=== PATIENT | male | born 1960 | race Caucasian/White ===

== ENCOUNTER → 2016-07-24 | Outpatient (CLI) | payer BC ==
[~2016-07-24] MED LIST: OXYC-57 PO
--- NOTE | 2016-07-24 14:59 | DIAGNOSTIC IMAGING REPORT ---
BONY ORBITS 3 VIEWS CLINICAL HISTORY: MRI clearance. FINDINGS: 3 views of the bony orbits are obtained. There is no radiodense/metallic foreign body seen in the region of the bony orbits. The bony orbits are grossly intact. The mastoid air cells and paranasal sinuses are clear as imaged. The visualized calvarium appears preserved. IMPRESSION: There is no radiopaque/metallic foreign body identified in the region of the bony orbits. Electronically signed by: Zhang Petit M.D. 07/24/2016 2:58 PM Dictated Date/Time: 07/24/2016 2:57 PM
--- NOTE | 2016-07-24 16:15 | DIAGNOSTIC IMAGING REPORT ---
LUMBAR SPINE MRI HISTORY: Back pain LUMBAR RADICULOPATHY TECHNIQUE: Multiplanar multisequence MRI of the lumbar spine was performed without the use of contrast. COMPARISON: None. FINDINGS: For the purpose of the report the L5-S1 disc space will be located on axial image 27 of 30. Moderate degenerative disc changes throughout the entire lumbar region. Unremarkable signal characteristics of the vertebral bodies. L1-L2: Mild broad-based bulging disc. L2-L3: Mild broad-based disc herniation. Mild multifactorial narrowing of the spinal canal. L3-L4: Mild broad-based disc herniation. Mild multifactorial narrowing of the spinal canal. Mild narrowing right neural foramina. L4-L5: Mild central disc herniation. Mild impact anterior thecal sac. Mild narrowing neuroforamina bilaterally. Hypertrophic changes posterior elements. L5-S1: Prominent right posterior disc herniation. Considerable deformity right anterior thecal sac with considerable narrowing right neural foramina. IMPRESSION: 1. Multilevel bulging disc/disc herniations with multifocal regions of narrowing of the spinal canal. 2. Right posterior disc herniation L5-S1. 3. Mild/moderate multifocal narrowing of the spinal canal from L2 through L4 4. Moderate degenerative disc changes throughout the entire lumbar region. Electronically signed by: Adalberto Perez M.D. 07/24/2016 4:14 PM Dictated Date/Time: 07/24/2016 4:11 PM
== END | disposition home or self-care (01) ==
LOC: C.RADBC 14:42
PROVIDERS: ATTEND Pain Medicine Interventional Pain Medicine
DX: Z13.89 Encounter for screening for other disorder (principal); M51.17 Intervertebral disc disorders with radiculopathy, lumbosacral region

== ENCOUNTER 2016-07-27 12:41 | Inpatient (IN) | payer BC ==
[~2016-07-27] VITALS: Ht 180.3 cm; Wt 110.5 kg
[2016-07-27] MEDS ORDERED: ONDANSETRON INJ 2 MG/ML 2 ML VIAL IV PRN (13:15)
[2016-07-27] MEDS ORDERED: LORAZEPAM INJ 1 MG in SYRINGE 0.5 ML IV PRN (13:15)
[2016-07-27] MEDS ORDERED: PROMETHAZINE HCL INJ 12.5 MG in SODIUM CHLORIDE 0.9% 50ML 50 ML IV PRN (13:15)
[2016-07-27] MEDS ORDERED: LORAZEPAM 1 MG TAB PO PRN (13:15)
[2016-07-27] MEDS ORDERED: NALOXONE HCL 0.4 MG/1 ML VIAL/CARP IV PRN (13:15)
--- NOTE | 2016-07-27 14:56 | HISTORY & PHYSICAL EXAMINATION ---
DATE OF ADMISSION: 07/27/2016 CHIEF COMPLAINT: Low back pain and right lower extremity pain. SUBJECTIVE EXAMINATION: Obinna is a 56-year-old patient who presented to our clinic with a 1-month history of increasing worsening low back pain and right lower extremity pain with associated numbness described in an S1 fashion. He was treated conservatively, which has included interventional management, who felt he was not a candidate for injections. He was referred to us for an evaluation, which demonstrated a large L5-S1 disk herniation in the right lateral recess. Currently, he reports back and right leg pain with associated numbness. Denies any left lower extremity symptoms or bowel or bladder dysfunction. He has never had any other treatment, but does have a history of chronic back pain that is managed conservatively with activity modification. Due to the level and severity of his pain, he was indicated for admission to the hospital for pain control with consideration of definitive management to include a right L5-S1 microdiskectomy. PAST MEDICAL HISTORY: Includes cervical stenosis. PAST SURGICAL HISTORY: Includes cervical ACDF and meniscectomy. ALLERGIES: No known allergies. CURRENT MEDICATIONS: Include Percocet. SOCIAL HISTORY: He is with 2 children. Positive alcohol and tobacco use. Has HVAC occupation. FAMILY HISTORY: None reported. REVIEW OF SYSTEMS: The patient denies any chills, fatigue, fever, cough, shortness of breath, recent respiratory infections, chest pain, heart murmuring, irregular heartbeat, syncope, nausea, vomiting, constipation, or diarrhea. PHYSICAL EXAMINATION: GENERAL APPEARANCE: A 56 years stated age, alert and oriented x3. CUTANEOUS LUMBAR: No dimplings, retractions, deformities, scarrings, or markings. RESPIRATORY: Clear to auscultation bilaterally. No wheezes, rhonchi, or rales. CARDIOVASCULAR: Regular rate and rhythm. No appreciated murmurs. LUMBAR: The patient has normal posturing. Normal gait. Pain with flexion, but tolerates extension. Positive straight leg raise on the right. No weakness noted throughout. No myotomal patterns bilaterally. Sensation is intact in all dermatomal patterns. Reflexes are equal and symmetric. No signs of clonus. DIAGNOSTIC STUDIES: Demonstrates a large L5-S1 disk herniation in the right lateral recess. He also has noted facet arthrosis, degenerative disks and stenosis throughout his lumbar spines at varying levels. IMPRESSION: 1. Right lumbar radiculopathy. 2. Right L5-S1 disk herniation. 3. Lumbar stenosis. PLAN OF CARE: After discussion with Obinna at this point, we have elected to admit him to [facility] for pain control. We discussed definitive options including a right L5-S1 microdiskectomy to include the risks, complications and outcomes. He conveyed an understanding and would like to proceed with this treatment plan. ARETHA
[2016-07-27 15:27] VITALS: BP 177/84; PULSE 97; TEMP 37; O2SAT 97; Ht 180.3 cm; Wt 110.5 kg
[2016-07-27 15:40] LABS: BASO % 0.3 %; BASO ABS # 0.02 K/uL (0-0.2); COMPLETE YES; EOS % 2.6 %; HEMATOCRIT 42.9 % (42-52); IG% 0.3 %; LYMPH % 29.5 %; LYMPH ABS # 1.91 K/uL (1.2-3.4); MEAN CELL VOLUME 89.2 fL (80-100); MEAN CORPUSCULAR HEMOGLOBIN 29.9 pg (25-34); MEAN CORPUSCULAR HGB CONC 33.6 g/dl (32-36); MEAN PLATELET VOLUME 9.9 fL (7.4-10.4); MONO % 9.1 %; NEUT % 58.2 %; PLATELET COUNT 182 K/uL (130-400); RED BLOOD COUNT 4.81 M/uL (4.7-6.1); WHITE BLOOD COUNT 6.47 K/uL (4.8-10.8)
[2016-07-27 16:04] LABS: BUN/CREATININE RATIO 15.3 (10-20); CALCIUM 8.9 mg/dl (8.5-10.1); CREATININE 1.2 mg/dl (0.60-1.40); POTASSIUM 3.7 mmol/L (3.5-5.1)
--- NOTE | 2016-07-27 16:12 | DIAGNOSTIC IMAGING REPORT ---
CHEST 2 VIEWS ROUTINE CLINICAL HISTORY: Preoperative chest COMPARISON STUDY: 05/09/2014 FINDINGS: The heart is borderline enlarged. There is no focal pulmonary consolidation. There is no failure. There are no pleural effusions. Postsurgical changes are present within the cervical spine.[ IMPRESSION: No active disease in the chest. Electronically signed by: Erasmo Webster M.D. 07/27/2016 4:11 PM Dictated Date/Time: 07/27/2016 4:10 PM
[2016-07-27 16:36] VITALS: BP 134/86; PULSE 71; TEMP 36.4; O2SAT 96
[2016-07-27] MEDS ORDERED: INFLUENZA ADMINISTRATION CHARGE ONE (16:45)
[2016-07-27] MEDS ORDERED: INFLUENZA VIRUS QUAD VACCINE 0.5 ML SYR IM. ONE (16:45)
[2016-07-27] MEDS: SODIUM CHLORIDE 0.9% 1000ML 1,000 ML IV SCH (18:20)
[2016-07-27] MEDS: HYDROmorphone HCL 0.5MG/ML 50 ML CASSETTE IV PRN ×2 (18:21→23:09)
[2016-07-27] MEDS: DEXAMETHASONE INJ 8 MG in SYRINGE 0 ML IV SCH (18:21)
[2016-07-27 20:31] LABS: URINE APPEARANCE CLEAR (CLEAR); URINE BILIRUBIN NEG (NEG); URINE COLOR YELLOW; URINE NITRITE NEG (NEG); URINE SPECIFIC GRAVITY 1.025 (1.000-1.030); UROBILINOGEN NEG (NEG)
[2016-07-27 20:32] LABS: MANUAL MICROSCOPIC REQUIRED? NO; REVIEW REQ? NO
[2016-07-27 22:58] VITALS: BP 118/79; PULSE 63; TEMP 36.3; O2SAT 92
[2016-07-28] MEDS: DEXAMETHASONE INJ 8 MG in SYRINGE 0 ML IV SCH ×2 (00:35→07:27)
[2016-07-28 05:17] VITALS: BP 131/79; PULSE 57; TEMP 36.4; O2SAT 93
[2016-07-28] MEDS ORDERED: CEFAZOLIN 2000 MG/60 ML D5W 60 ML IV SCH (06:00)
[2016-07-28 07:08] VITALS: BP 133/72; PULSE 64; TEMP 36.5; O2SAT 93
[2016-07-28] MEDS ORDERED: MIDAZOLAM HCL 1 MG/ML 2ML VIAL ONE ×2 (12:21→12:31)
[2016-07-28] MEDS ORDERED: FENTANYL CITRATE INJ 50 MCG/1 ML 2 ML VIAL ONE ×2 (12:21→12:31)
[2016-07-28] MEDS ORDERED: PROPOFOL IV EMULSION 10 MG/ML 20 ML VIAL IV ONE (12:36)
[2016-07-28] MEDS ORDERED: LIDOCAINE HCL 2% 2 ML VIAL (20MG/ML) ONE (12:36)
[2016-07-28] MEDS ORDERED: ONDANSETRON INJ 2 MG/ML 2 ML VIAL ONE (12:36)
[2016-07-28] MEDS ORDERED: ROCURONIUM BROMIDE 10 MG/ML 5 ML VIAL ONE (12:36)
[2016-07-28] MEDS ORDERED: GLYCOPYRROLATE INJ 0.2 MG/ML VIAL ONE (12:36)
[2016-07-28] MEDS ORDERED: NEOSTIGMINE METHYLSULFATE 5 MG/5 ML SYR ONE (12:36)
[2016-07-28] MEDS ORDERED: LARYING-O-JET KIT (LTA) EXT ONE ×2 (12:36)
[2016-07-28] MEDS ORDERED: DEXAMETHASONE SOD INJ 4 MG/ML VIAL ONE (12:36)
[2016-07-28] MEDS: SODIUM CHLORIDE 0.9% 1000ML 1,000 ML IV SCH (13:20)
[2016-07-28] MEDS ORDERED: BACITRACIN 50000 UNIT VIAL ONE (13:52)
[2016-07-28] MEDS ORDERED: THROMBIN 5000 UNITS KIT ONE (13:52)
[2016-07-28] MEDS ORDERED: BUPIVACAINE/EPINEPHRINE 0.5% MPF 1:200,000 30 ML VIAL ONE (13:52)
[2016-07-28 13:56] VITALS: BP 142/81; PULSE 66; TEMP 36.3; O2SAT 97
--- NOTE | 2016-07-28 14:42 | History & Physical Bridge Note ---
H&P Re-Evaluation Bridge Note: I have examined the patient, reviewed the History & Physical and in the interval since the performance of the History & Physical I have noted the following changes of clinical significance: No changes noted
[2016-07-28] MEDS ORDERED: OXYC-57 PO (14:46)
--- NOTE | 2016-07-28 14:47 | Discharge Instructions ---
Discharge Instructions Admission Reason for Admission: Lumbar Radiculopathy, Acute Discharge Discharge Diagnosis / Problem: Lumbar Disc Herniation Discharge Goals Goal(s): Decrease discomfort, Improve function, Increase independence Activity Recommendations Activity Limitations: as noted below Lifting Limitations: no more than 5 pounds Exercise/Sports Limitations: until after follow-up appointment May Resume Sexual Activity: after follow-up appointment Shower/Bathe: may shower/bathe in 3 days . Instructions / Follow-Up Instructions / Follow-Up ACTIVITY RECOMMENDATIONS: SELF CARE INSTRUCTIONS AFTER A LAMINECTOMY 1. No prolonged sitting (less than 30 minutes for the first 3 weeks after surgery). 2. No bending, lifting more than 5 pounds, or twisting (roll like a log when turning in bed). 3. You may shower 3 days after surgery if no drainage from wound. Thoroughly dry wound. Do not soak in the tub. 4. Please walk as much as you can for exercise. Gradually increase the distance that you walk as your endurance increases. 5. You may drive in 7-10 days if you are comfortable and no longer requiring pain medications. SPECIAL CARE INSTRUCTIONS: VERY IMPORTANT TO READ AND REVIEW A. Your surgical incision has been closed with a cosmetic suture under the skin that will dissolve in about 6 weeks. In 14 days, you can use a pair of clean scissors and cut the suture that is left outside of the skin at the ends of your incision. B. Complications are uncommon, but please contact us if you have any signs or symptoms of: 1. wound infection (fever higher than 102.5 degrees F, redness, separation of wound, drainage, or increasing pain from the incision) 2. blood clots in legs (pain, swelling, redness and warmth in legs) 3. urinary tract infection (fever higher than 102.5 degrees, burning upon urination or increased frequency of urination) 4. nerve problems (inability to walk on your toes or heels, numbness, loss of bowel or bladder control) 5. any other symptoms that concern you. C. Please call the office at if you have any concerns or questions about your operation or recovery. MANAGING PAIN AFTER SPINAL SURGERY 1. Narcotic medication is intended for short-term use and will be provided for surgical pain. Surgical pain usually lasts for a period of 4-6 weeks. Narcotic medication includes Percocet, Vicodin, Darvocet, Tylenol #3 or Lortab. 2. Longer-term pain is more appropriately treated with non-narcotic medication such as Tylenol ES. 3. Muscle spasm is not appropriately treated with narcotics. Muscle relaxers such as Soma, Flexeril or Skelaxin can be used along with Tylenol ES. 4. Remember that we all live with some "aches and pains". This is not unusual or uncommon after an injury or as we get older. 5. We will provide appropriate medication within the normal guidelines of their prescribed use. We will also be very cautious and aware of potential abuse and extended duration of patients' medication needs. 6. Please allow 2-3 days to process refills. Prescriptions will not be mailed but must be picked up at the office. FOLLOW UP VISIT: Keep your scheduled follow-up appointment. Any questions, please call the office at . Current Hospital Diet Patient's current hospital diet: Regular Diet Discharge Diet Recommended Diet: Regular Diet Pending Studies Studies pending at discharge: no Medical Emergencies . Who to Call and When: Medical Emergencies: If at any time you feel your situation is an emergency, please call 911 immediately. . Non-Emergent Contact Non-Emergency issues call your: Surgeon Call Non-Emergent contact if: temperature is above 101, your pain is not controlled, your pain is worsening, your pain is unusual for you, your pain is concerning you, wound has increased drainage, wound has increased redness, wound has increased pain, you have any medication questions . "Provider Documentation" section prepared by Baudilio Krause. VTE Core Measure Inpt VTE Proph given/why not?: Annie Grimaldo
[2016-07-28] MEDS ORDERED: HYDROmorphone INJ 2 MG/ML SYR/VIAL IV PRN (15:15)
[2016-07-28] MEDS ORDERED: PROMETHAZINE HCL INJ 12.5 MG in SODIUM CHLORIDE 0.9% 50ML 50 ML IV PRN (15:15)
[2016-07-28] MEDS ORDERED: ATROPINE SULFATE 0.1 MG/ML 5ML SYR IV PRN (15:15)
[2016-07-28] MEDS ORDERED: HYDROmorphone INJ 2 MG/ML SYR/VIAL ONE (15:15)
[2016-07-28] MEDS ORDERED: LABETALOL HCL IV 5 MG/ML 20ML IV PRN (15:15)
[2016-07-28] MEDS ORDERED: ONDANSETRON INJ 2 MG/ML 2 ML VIAL IV PRN ×2 (15:15→15:45)
--- NOTE | 2016-07-28 15:39 | [facility] Post Operative Brief Note ---
Immediate Operative Summary Operative Date Jul 28, 2016. Pre-Operative Diagnosis 1. Right lumbar radiculopathy. 2. Right L5-S1 disk herniation. 3. Lumbar stenosis. Post-Operative Diagnosis 1. Right lumbar radiculopathy. 2. Right L5-S1 disk herniation. 3. Lumbar stenosis. Procedure(s) Performed Right L5-S1 Microdiscectomy Surgeon Dr. Jung Hunt [employer] Process[employer] Surgeon(s) Baudilio Krause PA-C Estimated Blood Loss 40 Findings dict Specimens None per surgeon
[2016-07-28] MEDS ORDERED: OXYCODONE/ACETAMINOPHEN 5-325 TAB PO PRN ×2 (15:45)
[2016-07-28] MEDS ORDERED: FLOSEAL HEMOSTATIC MATRIX 5ML TOP ONE (15:53)
[2016-07-28] MEDS ORDERED: SODIUM CHLORIDE 0.9% 1000ML 1,000 ML IV SCH (16:00)
--- NOTE | 2016-07-28 16:03 | DIAGNOSTIC IMAGING REPORT ---
LUMBAR SPINE, INTRAOPERATIVE FLUOROSCOPY HISTORY: Microdiscectomy. FLUOROSCOPY TIME: 2 seconds. FINDINGS: Intraoperative fluoroscopy was provided for the lumbar spine. 2 fluoroscopic spot images were obtained. IMPRESSION: Fluoroscopy provided for a L5-S1 microdiscectomy. Electronically signed by: Adalberto Perez M.D. 07/28/2016 4:02 PM Dictated Date/Time: 07/28/2016 4:01 PM
[2016-07-28 16:55] VITALS: BP 148/77; PULSE 53; TEMP 36.3; O2SAT 99
--- NOTE | 2016-07-28 16:58 | Anesthesiology Progress Note ---
Anesthesia Post Op Note Date & Time Jul 28, 2016 at 16:58 Vital Signs Pain Intensity: 0 Vital Signs Past 12 Hours Date Time Temp Pulse Resp B/P Pulse Ox O2 Delivery O2 Flow Rate FiO2 07/28/16 16:29 36.5 53 16 128/89 98 Nasal Cannula 2 07/28/16 16:24 58 13 07/28/16 16:24 55 13 98 07/28/16 16:23 129/98 07/28/16 16:20 146/81 07/28/16 16:19 58 13 07/28/16 16:19 60 13 97 07/28/16 16:18 153/106 07/28/16 16:16 137/96 07/28/16 16:13 150/121 07/28/16 16:10 144/88 07/28/16 16:10 72 16 144/88 100 Mask 10 07/28/16 16:09 75 13 96 07/28/16 16:09 73 13 07/28/16 16:04 74 18 101/74 97 07/28/16 16:04 72 18 07/28/16 16:00 160/94 07/28/16 15:59 82 17 07/28/16 15:59 36.3 87 14 160/94 100 Mask 10 07/28/16 15:59 81 17 98 07/28/16 13:56 36.3 66 18 142/81 97 Room Air 07/28/16 07:20 Room Air 07/28/16 07:08 36.5 64 16 133/72 93 Room Air 07/28/16 05:17 36.4 57 16 131/79 93 Room Air Notes Mental Status: alert / awake / arousable, participated in evaluation Pt Amnestic to Procedure: Yes Nausea / Vomiting: adequately controlled Pain: adequately controlled Airway Patency, RR, SpO2: stable & adequate BP & HR: stable & adequate Hydration State: stable & adequate Anesthetic Complications: no major complications apparent
[2016-07-28 17:01] VITALS: O2SAT 99
[2016-07-28 17:39] VITALS: BP 148/77; PULSE 53; TEMP 36.3; O2SAT 99
--- NOTE | 2016-07-29 00:11 | OPERATIVE REPORT ---
DATE OF OPERATION: 07/28/2016 PREOPERATIVE DIAGNOSIS: Right L5-S1 herniated nucleus pulposus. POSTOPERATIVE DIAGNOSIS: Same. PROCEDURE: Right L5-S1 microdiscectomy. SURGEON: Dr. Hunt. WING COMMANDER: Baudilio Krause PA-C. Please note he participated in all portions of the procedure and was critical for performance of the procedure, participated in positioning, prepping, draping, retraction and wound closure. ANESTHESIA: General endotracheal anesthesia. COMPLICATIONS: None. ESTIMATED BLOOD LOSS: Minimal. PROCEDURE IN DETAIL: After identification of patient and operative level, he was brought to the OR where he underwent induction of general anesthesia. He was then positioned prone on Rock OR table. All bony prominences were well padded. Care was taken to avoid pressure on the periorbital area. Lumbosacral area was sterilely prepped and draped in the usual fashion. Antibiotics were administered, timeout was performed and level was confirmed. Skin incision was localized with lateral fluoroscopy and a spinal needle. I infiltrated the skin with Marcaine and then made skin incision from the spinous process of L5 and S1 and exposed the right L5-S1 interlaminar window. I placed blackjack supervisor retractor, confirmed level with fluoroscopy, marked the level and created a small laminotomy under the caudal edge of L5 with a german. I removed ligamentum flavum, identified the traversing nerve root which was displaced by a large disc herniation. I removed the loose disc fragments and explored the annular disruption and removed loose fragments. I then confirmed hemostasis, irrigated, applied FloSeal as necessary and then closed in layered fashion. All sponge and needle counts were correct at the end of the case. I attest to the content of the Intraoperative Record and any orders documented therein. Any exceptio ns are noted below.
--- NOTE | 2016-08-05 00:08 | DISCHARGE SUMMARY ---
PREOPERATIVE DIAGNOSIS: Right L5-S1 herniated disk. POSTOPERATIVE DIAGNOSIS: Same. PROCEDURE: Right L5-S1 microdiscectomy. SURGEON: Dr. Jung Hunt. GORE STITCHER: Baudilio Krause PA-C HISTORY OF PRESENT ILLNESS: Please refer to EMR. HOSPITAL COURSE: On 07/27/2016, Mr. Flynn was admitted to [facility] with the above diagnosis. He was placed on the orthopedic floor and placed on a SPECIAL EVENTS COORDINATOR for pain control with expectations of operative management. On July 28, he remained stable and was cleared medically for surgical procedure. On 07/28/2016, he was transported to preoperative holding where he was identified and the procedure was reviewed in detail. He was transported to the operating room, introduced with general endotracheal anesthesia. Sterile conditions were set and he successfully underwent a right L5-S1 microdiscectomy without complication or issue. He was awakened in stable and satisfactory condition and transported to postoperative recovery. Vital signs and pain were monitored and properly managed. There is no evidence of complications or issues to note. From postoperative care, he met the standards for discharge home and later was released from [facility]. There were no complications or issues to note. DISPOSITION: Home. DISPOSITION CONDITION: Stable. NOTED COMPLICATIONS OR ISSUES: Zero. DISCHARGE INSTRUCTIONS: Please refer to EMR.
== END 2016-07-28 18:40 | disposition home or self-care (01) | DRG 520 ==
LOC: C.MSN 15:05
PROVIDERS: ADMIT Orthopaedic Surgery Orthopaedic Surgery of the Spine; ATTEND Orthopaedic Surgery Orthopaedic Surgery of the Spine
PROC: 0ST40ZZ Resection of Lumbosacral Disc, Open Approach (ICD-10-PCS; principal; 2016-07-28 14:00)
DX: M51.17 Intervertebral disc disorders with radiculopathy, lumbosacral region (principal); M48.06 Spinal stenosis, lumbar region; E66.9 Obesity, unspecified; Z68.34 Body mass index [BMI] 34.0-34.9, adult; Z23 Encounter for immunization; Z72.0 Tobacco use; Z98.1 Arthrodesis status; Z79.891 Long term (current) use of opiate analgesic

== ENCOUNTER → 2016-08-13 | Outpatient (CLI) | payer BC ==
--- NOTE | 2016-08-13 12:26 | DIAGNOSTIC IMAGING REPORT ---
RIGHT LOWER EXTREMITY VENOUS DOPPLER HISTORY: Right leg pain. COMPARISON STUDY: None. FINDINGS: There is normal compressibility, flow, and augmentation within the right lower extremity deep venous system. IMPRESSION: No DVT within the right lower extremity Electronically signed by: Keven Hall M.D. 08/13/2016 12:25 PM Dictated Date/Time: 08/13/2016 12:25 PM
== END | disposition home or self-care (01) ==
LOC: C.ULTR 12:00
PROVIDERS: ATTEND Orthopaedic Surgery Orthopaedic Surgery of the Spine
DX: M79.661 Pain in right lower leg (principal)

== ENCOUNTER → 2017-08-17 | Outpatient (CLI) | payer BC ==
--- NOTE | 2017-08-18 06:16 | SPLIT NIGHT TECHNICIAN REPORT ---
[facility] Split Night Polysomnogram - Knurling Machine Operator Report Study date: 08/17/2017 Referring Physician: Dr. Vita Morrison M.D. Name: NAVJOT MORE Knurling Machine Operator: Saida Hodgson [facility] Date of : 1960 Height: 57 years, Height 5' 11" Sex: Male Weight: 250 lbs Age: 57 Neck Circum: 17 in BMI: Medications: 34.86 NONE REPORTED Patient History 57 yr-old male here for a baseline study. He has a history of witnessed apnea, snoring, frequent awakenings, and restless sleep. He stated that he will sleep for about three hours then toss and turn every fifteen minutes or so until he gets up. His [place] scale is 5. The test was started on room air. ETCO2 testing is included in this study. Room 1 Parameters Monitored NPSG: E1-M2, E2-M1, Fp1-M2, Fp2-M1, F3-M2, F4-M2, F4-M1, C3-M2, C4-M2, C4-M1, O1-M2, O2-M2, O2-M1, T3-M2, T4-M1, P3-M2, P4-M1, CHIN1, CHIN2, HR, EKG, Legs, PFLOW, SNOR, FLOW, CFLOW, Tidal Volume, THOR, ABDO, SpO2, PLTH, CPRESS, ETCO2 Wave, ETCO2, pH SLEEP SUMMARY DATA DIAGNOSTIC TREATMENT Lights Out: 9:47:42 PM 12:34:42 AM Lights On: 12:18:12 AM 5:27:42 AM Total Recording Time (TRT): 150.5 min. 293.0 min. Total Sleep Time (TST): 126.5 min. 226.5 min. NREM Time: 115.0 min. 138.0 min. REM Time: 11.5 min. 88.5 min. Sleep Period Time (SPT): 131.0 min. 271.5 min. Sleep Efficiency (SE): 84 % 77 % Sleep Latency: 19.5 min. 21.5 min. Arousal Index: 21.3 6.6 PAP Treatment Levels: 4, 6, 8, 9 * Optimal Pressure(s) SLEEP STAGING DATA DIAGNOSTIC TREATMENT Duration (min) TST % Duration (min) TST % Stage Wake: 24.0 min. -- 66.5 min. -- WASO: 4.5 min. -- 45.0 min. -- NREM: 115.0 min. 91 % 138.0 min. 61 % Stage N1: 30.5 min. 24 % 36.0 min. 16 % Stage N2: 76.0 min. 60 % 102.0 min. 45 % Stage N3: 8.5 min. 7 % 0.0 min. 0 % REM: 11.5 min. 9 % 88.5 min. 39 % POSITIONAL DATA Event Count Index Event Count Index Supine: 22 87.8 17 9.9 Supine NREM: 22 87.8 3 2.6 Supine REM: N/A N/A 14 26 Non-Supine: 111 58.1 19 8.3 Non-Supine NREM: 99 57.6 14 10.7 Non-Supine REM: 12 62.6 5 5.3 AROUSAL SUMMARY DATA: Event Count Index Event Count Index Apnea Arousals: 14 21.3 2 1.6 Hypopnea Arousals: 14 6.6 12 3.2 Snore Arousals: 14 6.6 1 0.3 PLM Arousals: 0 0.0 0 0.0 Non-Specific Arousals: 4 1.9 9 2.4 Total Arousals: 45 21.3 25 6.6 MYOCLONUS (PLM) Event Count Index Event Count Index PLM: 14 6.6 8 2.1 PLM AROUSAL: 0 0.0 0 0.0 PLM W/O AROUSAL 14 6.6 8 2.1 PLM W/RESP EVENT 3 0.0 0 0.0 MYOCLONUS (PLM) Event Count Index Event Count Index LM: 1 20.9 38 10.1 LM AROUSAL: 1 0.5 2 0.5 LM W/O AROUSAL LM W/RESP EVENT LM NON SPECIFIC 37 17.5 38 10.1 HEART RATE DATA DIAGNOSTIC TREATMENT Sleep (bpm): 67 71 REM (bpm): 91 92 NREM (bpm): 91 92 Tachycardia Count: 0 0 Tachycardia Duration: 0.00 0 Bradycardia Count: 0 0 Bradycardia Duration: 0.00 0 DIAGNOSTIC PORTION TREATMENT PORTION RESPIRATORY DATA Event Count Index Event Count Index AHI: -- 61.7 -- 9.0 RDI: -- 63.1 -- 10 Obstructive Apnea: 41 19.4 2 0.5 Central Apnea: 1 0.5 4 1.1 Mixed Apnea: 3 1.4 0 0.0 Hypopnea: 85 40.3 28 7.4 RERA: 3 1.4 2 0.5 Total Apneas: 45 21.3 6 1.6 RESPIRATORY DATA REM NREM SLEEP REM NREM SLEEP Supine Position: Obstructive Apneas: N/A 7 7 1 0 1 Central Apneas: N/A 0 0 0 2 2 Mixed Apneas: N/A 3 3 0 0 0 Hypopneas: N/A 12 12 13 1 14 RERA N/A 0 0 0 0 0 Total Supine Events: N/A 22 22 14 3 17 Supine AHI: N/A 87.8 87.8 26 2.6 9.9 Supine RDI: N/A 87.8 87.8 25.9 2.6 9.9 REM NREM SLEEP REM NREM SLEEP Non-Supine Position: Obstructive Apneas: 6 28 34 0 1 1 Central Apneas: 0 1 1 1 1 2 Mixed Apneas: 0 0 0 0 0 0 Hypopneas: 6 67 73 4 10 14 RERA 0 3 3 0 2 2 Total Supine Events: 12 99 111 5 14 19 Supine AHI: 62.6 57.6 58.1 5.3 10.7 8.3 Supine RDI: 62.6 59.4 59.8 5.3 12.5 9.2 OXYGEN DESTAURATION DATA: Event Count Index Event Count Index REM Desaturations: 14 73.0 25 16.9 NREM Desaturations: 122 63.7 19 8.3 SNORE DATA DIAGNOSTIC TREATMENT Snore Time: 40.8 12:56:12 AM Snore TST%: 18 5 Snore Arousal Count: 14 1 Snore Arousal Index: 6.6 0.3 Desaturation Event Summary: Minimum %SpO2 Event Count Mean/Min/Max Duration(sec.) Desaturation Index % Time In Bed > 90 183 25.1 / 6.5 / 58.3 31.3 79.7 86 - 90 35 18.6 / 7.5 / 41.8 25.6 18.6 81 - 85 2 18.3 / 15.0 / 21.5 18.0 1.5 76 - 80 0 N/A 0.0 0.2 71 - 75 0 N/A 0.0 0.0 66 - 70 0 N/A 0.0 0.0 61 - 65 0 N/A 0.0 0.0 56 - 60 0 N/A 0.0 0.0 51 - 55 0 N/A 0.0 0.0 < 50 0 N/A 0.0 0.0 OXYGEN SATURATION DATA DIAGNOSTIC TREATMENT SpO2 Mean Sleep: 91 % 92 % SpO2 Mean REM: 91 % 92 % SpO2 Mean NREM: 91 % 92 % SpO2 Minimum Sleep: 76 % 78 % SpO2 Minimum REM: 78 % 78 % SpO2 Minimum NREM: 76 % 86 % Time Below 90% (TST): 36.3 9.8 Time Below 88% (TST): 8.7 6.3 Total REM NREM Awake <50% 0.0 min. 0.0 min. 0.0 min. 0.0 min. 51 - 60% 0.0 min. 0.0 min. 0.0 min. 0.0 min. 61 - 70% 0.0 min. 0.0 min. 0.0 min. 0.0 min. 71 - 80% 0.8 min. 0.5 min. 0.3 min. 0.0 min. 81 - 90% 88.7 min. 14.4 min. 62.4 min. 11.8 min. 91 - 100% 350.7 min. 85.0 min. 188.8 min. 76.9 min. Average 92 92 92 92 Minimum SpO2 76 78 76 79 Desaturation Event Index 26.2 23.4 33.4 12.6 # Desat. Events below 89% 133 26 98 9 Time(%) with Saturation below 89% 6.4 2.2 3.7 0.5 Time(min.) with Saturation below 89% 28.2 9.7 16.2 2.4 Recording Knurling Machine Operator Comments: Mr. More slept in the right, left, and supine positions. No cardiac arrhythmias were noted. PLMs were noted. No bruxism noted. Snoring was noted and scored as a 4 on a scale of 1 through 5. (0=no snoring, 5=snoring loud enough to be heard through a closed door or down the turner way) At 12:33 am, he met specific Split-Night criteria during the diagnostic portion of this study. CPAP was initiated at +4 CMH2O and up-titrated to a level of +9 CMH2O, Cflex 2 which nearly eliminated all respiratory events and snoring. A Simplus full face mask size medium from [employer] was used during titration. He did not wake up to use the restroom during the night. Mr. More stated that he slept poorly. The final report will be interpreted and signed by a sleep physician. The completed physician report will then be placed in the patient medical record. Therapy Event: Therapy (cm H20) 0 4 6 8 9 Total Time at Pressure (min.) 150.5 76.9 42.8 51.4 121.9 TST at Pressure (min.) 126.5 13.9 42.3 49.9 120.4 # Periods 1 1 1 1 1 Sleep Onset (min.) 19.5 21.5 0.0 0.0 0.0 REM Onset (min.) 84.0 N/A 26.1 0.0 0.0 Sleep Efficiency % 84 18 98 97 98 Wakefulness (%) 15.9 81.9 1.2 2.9 1.2 Wakefulness (min.) 24.0 63.0 0.5 1.5 1.5 NREM 1 (%) 20.3 18.1 7.2 11.7 10.7 NREM 1 (min.) 30.5 13.9 3.1 6.0 13.0 NREM 2 (%) 50.5 0.0 56.1 3.9 62.4 NREM 2 (min.) 76.0 0.0 24.0 2.0 76.0 NREM 3 (%) 5.6 0.0 0.0 0.0 0.0 NREM 3 (min.) 8.5 0.0 0.0 0.0 0.0 REM (%) 7.6 0.0 35.6 81.5 25.7 REM (min.) 11.5 0.0 15.2 41.9 31.4 # Arousals 45 3 11 3 8 Arousal Index 21.3 12.9 15.6 3.6 4.0 # Snore 1,124 39 214 13 30 Snore Index 533.1 168.3 303.4 15.6 15.0 AHI 61.7 17.3 25.5 9.6 2.0 AHI Supine 87.8 N/A 48.4 15.2 1.6 AHI Non-Supine 58.1 17.3 14.6 7.0 2.6 NREM AHI 61.6 17.3 17.7 7.5 1.3 REM AHI 62.6 N/A 39.4 10.0 3.8 RDI 63.1 17.3 25.5 9.6 3.0 # Obstructive 41 1 0 1 0 # Central Ap 1 0 0 2 2 # Mixed 3 0 0 0 0 # Hypopneas 85 3 18 5 2 RERAS 3 0 0 0 2 Total Respiratory Events 133 4 18 8 6 Time Below SpO2 89.00% (min.) 18.4 0.0 4.5 2.7 0.3 Mean NREM SpO2 (%) 91 92 92 93 92 Mean REM SpO2 (%) 91 N/A 91 92 93 Mean Sleep SpO2 (%) 91 92 92 92 92 Min NREM SpO2 (%) 76 89 86 90 90 Min REM SpO2 (%) 78 N/A 78 78 86 Position Supine (min.) 15.0 0.0 13.6 15.8 73.6 Position Non-supine (min.) 111.5 13.9 28.7 34.1 46.8 LM Index Sleep 27.5 17.3 11.3 18.0 9.5 LM Index NREM 28.7 17.3 11.1 0.0 10.1 LM Index REM 15.7 N/A 11.8 21.5 7.7 Mean Heart Rate (bpm) 67 64 70 76 69 Min Heart Rate (bpm) 53 58 59 61 60 CPAP REPORT Therapy Detail Time / Page # Comment CPAP 4 cm H2O Full Face Mask Flex Pressure Relief Humidifier on 12:33:11 AM / pg. 534 HE HAS BEEN ASLEEP FOR OVER 2 HOURS AND HIS AHI IS ABOVE 40. CPAP 6 cm H2O Full Face Mask Flex Pressure Relief Humidifier on 1:51:36 AM / pg. 691 INCREASED FOR HYPOPNEAS CPAP 8 cm H2O Full Face Mask Flex Pressure Relief Humidifier on 2:34:26 AM / pg. 777 INCREASED FOR HYPOPNEAS CPAP 9 cm H2O Full Face Mask Flex Pressure Relief Humidifier on 3:25:50 AM / pg. 880 INCREASED FOR HYPOPNEAS
--- NOTE | 2017-08-18 15:57 | POLYSOMNOGRAPH REPORT ---
CLINICAL DATA: A 57-year-old male with a BMI of 34.9, referred by Dr. Morrison for a split night sleep study. He has witnessed apnea, snoring, and frequent awakenings. He will sleep for 3 hours and then toss and turn. His [place] sleepiness score is 5/24. This was a split night study. SLEEP ARCHITECTURE: For the diagnostic portion of the study, sleep period time was 131 minutes. Total sleep time was 126.5 minutes divided between 115 minutes of non-REM sleep and 11.5 minutes of REM sleep. Sleep latency was 19.5 minutes. Sleep efficiency was 84%. Sleep consisted of stage N1 24%, stage N2 60%, stage N3 7%, and REM 9%. For the treatment portion of the study, sleep period time was 271.5 minutes. Total sleep time was 226.5 minutes divided between 138 minutes of non-REM sleep and 88.5 minutes of REM sleep. Sleep latency was 21.5 minutes. Sleep efficiency was 77%. Sleep consisted of stage N1 16%, stage N2 45%, and REM 39%. AROUSAL DATA: Prior to treatment, there were 45 arousals for an index of 21.3 per hour. During treatment, there were 25 arousals for an index of 6.6 per hour. PERIODIC LIMB MOVEMENT DATA: Prior to treatment, 37 limb movements during sleep were noted for an index of 17.5 per hour. During treatment, 38 limb movements during sleep were noted for an index of 10.1 per hour. ECHOCARDIOGRAM: Heart rates ranged from 67-92 beats per minute. No arrhythmias were noted. RESPIRATORY DATA: Very severe sleep apnea was documented prior to treatment. The diagnostic AHI was 61.7. The diagnostic RDI was 63.1. There were 41 obstructive, 1 central, and 3 mixed apneic episodes. There were 85 hypopneic episodes. There were 3 RERAs. The average AHI during treatment was 9. There were 2 obstructive apneic episodes and 4 central apneic episodes. There were 28 hypopneic episodes. There were 2 RERAs. OXIMETRY DATA: Nocturnal hypoxemia was seen prior to treatment. Oxygen lisa was 76% during non-REM sleep prior to treatment. Mean saturation with treatment was 92%. BUCKET OPERATOR'S COMMENTS AND TREATMENT SUMMARY: The patient slept in the right, left, and supine position. Snoring was severe, rated 4 on a scale of 1-5. At 12:33 a.m., he met split night criteria. He used a Simplus full face mask size medium from [employer]. He was titrated up to 9 cm of water pressure, C-Flex setting #2. At that final pressure setting, the patient slept for 120 minutes with an AHI of 2. IMPRESSION: Very severe sleep apnea/hypopnea with a diagnostic apnea/hypopnea index of 61.7 and a respiratory disturbance index of 63.1 with nocturnal hypoxemia corrected with CPAP 9 cm of water pressure, C-Flex setting #2 [employer] full face mask, size medium. RECOMMENDATIONS: The patient should be started on the above noted treatment regimen and seen back in followup within 90 days to document efficacy and compliance. [facility]
== END | disposition home or self-care (01) ==
LOC: C.NEUR 20:00
PROVIDERS: ATTEND Internal Medicine
DX: G47.30 Sleep apnea, unspecified (principal)

== ENCOUNTER 2021-08-18 12:09 | Inpatient (IN) ==
--- NOTE | 2021-07-31 13:22 | PAT Medication Instructions ---
Medication Instructions Date of Service July 31, 2021 Home Medications ibuprofen 200 mg tablet (Advil) 200 mg PO Q6H PRN zinc 100 mg tablet 100 mg PO DAILY ASK your surgeon for instructions ibuprofen 200 mg tablet (Advil) 200 mg PO Q6H PRN DO NOT take the morning of surgery zinc 100 mg tablet 100 mg PO DAILY Other Notes NOTHING TO EAT OR DRINK AFTER MIDNIGHT. If you have any questions please call us at [phone] or [phone] or [phone] or [phone]
--- NOTE | 2021-08-04 11:09 | Anesthesiology Consultation ---
Date of Service August 04, 2021 Assessment & Plan (1) Encounter for pre-operative examination: - will attempt to obtain [facility] records from 03/2019 regarding lumbar fusion and post-op TIA. - surgeon ordered clearance. - COVID screening: Per assessment on 08/04/2021: Travel screen negative, no known COVID-19 positive contacts or current COVID-19 related symptoms in past 2 weeks. Surgeon arranging preop COVID testing, scheduled 08/14/2021. Awaiting results. Chart Review Chart Review: Pending: Refer to Additional Notes / Consult section and Patient seen in Pre Admission Testing Teaching & Discussion Pre-Anesthesia Teaching/Discussion Notes: Instructed NPO after midnight before surgery, except medications with 15 cc of water. Medication instructions provided according to the PAT guidelines. History Surgery Operation Date: 08/18/21 13:25 Proposed Procedures p L1-L2 Decompression, T11-L2 Fusion, Spinal Cord Monitoring - Anthony Zaman DO Height/Weight Height: 5 ft 11 in Weight: 121.2 kg Allergies Allergy/AdvReac Type Severity Reaction Status Date / Time No Known Allergies Allergy Verified 07/31/21 12:19 Medications Home Medications Medication Instructions Recorded Confirmed Last Taken ibuprofen 200 mg tablet (Advil) 200 mg PO Q6H PRN 07/31/21 07/31/21 Unknown zinc 100 mg tablet 100 mg PO DAILY 07/31/21 07/31/21 Unknown Past Medical History Medical History (Updated 08/04/21 @ 11:17 by Carolina Cole PA-C) Degenerative disc disease Sleep apnea CPAP-compliant TIA (transient ischemic attack) [place] [facility] [place] POST SURGICAL COMPLICATION lumbar fusion FROM LOSING ALOT OF BLOOD > NO RESIDUAL EFFECTS > NO NEURO> did not require transfusion per pt Patient denies h/o seizures, heart attack, heart failure, DM, HTN, blood clots or blood transfusions. Exercise / Class Metabolic Activity II 4-5 Yardwork/Stairs/Walk up hill (denies CP or SOB with 1 FOS) Past Surgical History Surgical History History of ankle surgery LEFT History of arthroscopy LEFT KNEE X2, RIGHT X1 History of colonoscopy History of tooth extraction Hx of spinal fusion X2 CERVICAL > ROM WNL / X2 LUMBAR Past Anesthesia History No Family Hx of Anesthesia Complications and Other (post-op TIA s/p lumbar fusion 2018) History of PONV No Hx of PONV and No Hx of Motion Sickness Social History Smoking Status: Never smoker Do You Dip or Chew Tobacco: No (QUIT 11 YRS AGO) Hx Alcohol Use: Yes Alcohol type: beer and hard liquor alcohol intake frequency: 0-2 drinks per day Hx Substance Use: No substance use type: does not use Review of Systems Occasional reflux with certain foods, managed with dietary restrictions. Patient denies chest pain, shortness of breath, dyspnea on exertion, fever, chills, cough, wheezing, or palpitations. Physical Exam Vital Signs Vitals BP 147/76 P 75 TEMP 98.6 SP02 97% on RA RESP 17 Physical Full cervical extension range of motion without pain Full TMJ range of motion TMD 3.5 finger breaths Mallampati Score 3 Dentition: intact, missing teeth-one lower left back; denies chipped or loose teeth, caps/crowns or implants or bridges Lungs: normal respiratory effort. Clear throughout to auscultation, no adventitious breath sounds Cardiac: regular rate and rhythm, no murmurs noted Carotid arteries: negative bruit bilat Extremities: no distal extremity edema Lab Results Anesthesia Preop Results Results Anesthesia Widget: WBC 5.77 K/uL (4.8-10.8) 08/04/21 Hgb 14.3 g/dL (14.0-18.0) 08/04/21 Hct 42.9 % (42-52) 08/04/21 Plt 202 K/uL (130-400) 08/04/21 Na 140 mmol/L (136-145) 08/04/21 K 3.9 mmol/L (3.5-5.1) 08/04/21 Cl 105 mmol/L (98-107) 08/04/21 CO2 29 mmol/L (21-32) 08/04/21 BUN 15 mg/dl (6-23) 08/04/21 Creat 1.03 mg/dl (0.6-1.4) 08/04/21 Glucose Level 105 mg/dl (70-99(Fasting)) H 08/04/21 PT 10.3 Seconds (9.0-12.0) 08/04/21 PTT 26.5 Seconds (21.0-31.0) 08/04/21 INR 1.0 (0.9-1.1) 08/04/21 Urine Color Yellow 08/04/21 Urine Appearance Clear (Clear) 08/04/21 Urine pH 5.0 (4.5-7.5) 08/04/21 Urine Specific [place] 1.020 (1.000-1.030) 08/04/21 Urine Protein Negative (Negative) 08/04/21 Urine Glucose (UA) Negative (Negative) 08/04/21 Urine Ketones Negative (Negative) 08/04/21 Urine Blood Negative (Negative) 08/04/21 Urine Nitrite Negative (Negative) 08/04/21 Urine Bilirubin Negative (Negative) 08/04/21 Urine Urobilinogen Negative (Negative) 08/04/21 Urine Leukocyte Esterase Negative (Negative) 08/04/21 Blood Type A Positive 08/04/21 Antibody Screen NEGATIVE 08/04/21 Testing Electrocardiogram Date: 01/07/21 NSR, rate 70 bpm Chest X-Ray Date: 08/04/21 FINDINGS: Frontal and lateral radiographs of the chest demonstrate the cardiomediastinal silhouette to be within normal limits. The lungs are clear of alveolar opacities. There is no evidence for effusion bilaterally. There is no evidence for vascular congestion. There is no acute osseous pathology. IMPRESSION: 1. No acute cardiopulmonary disease.
[~2021-08-18 12:09] MED LIST changes: +ACETAMINOPHEN 500 MG TAB PO SCH; +CeleBREX 200 MG CAP PO SCH; +GABAPENTIN 600 MG DOSE PO SCH; +LR 15ML/HR IV SCH; -OXYC-57 PO
[2021-08-18] MEDS ORDERED: fentaNYL citrate 100 MCG/2 ML VIAL IV PRN (12:42)
[2021-08-18] MEDS ORDERED: HYDROmorphone INJ 2 MG/ML SYR/VIAL IV PRN (12:42)
[2021-08-18] MEDS ORDERED: ePHEDrine sulfate 50 MG/ML AMP IV PRN (12:42)
[2021-08-18] MEDS ORDERED: ATROPINE SULFATE 0.1 MG/ML 10ML SYR IV PRN (12:42)
[2021-08-18] MEDS ORDERED: ONDANSETRON INJ 2 MG/ML 2 ML VIAL IV PRN ×2 (12:42→17:45)
[2021-08-18] MEDS ORDERED: LIDOCAINE 2% 2 ML VIAL/AMP(20MG/ML) INFIL ONE (12:43)
[2021-08-18] MEDS ORDERED: ROCURONIUM BROMIDE 10 MG/ML 5 ML VIAL IV ONE (12:43)
[2021-08-18] MEDS ORDERED: fentaNYL citrate 100 MCG/2 ML VIAL ONE (12:43)
[2021-08-18] MEDS ORDERED: MIDAZOLAM HCL 1 MG/ML 2ML VIAL ONE (12:43)
[2021-08-18] MEDS ORDERED: PROPOFOL IV EMULSION 10 MG/ML 20 ML VIAL IV ONE (12:43)
--- NOTE | 2021-08-18 13:21 | History & Physical Bridge Note ---
Date of Service August 18, 2021 History & Physical Bridge Note I have examined the patient, reviewed the History & Physical and in the interval since the performance of the History & Physical I have noted the following changes of clinical significance: L1-L2 decompression, T12 L2 fusion
--- NOTE | 2021-08-18 13:22 | History & Physical Report ---
Date of Service August 18, 2021 Assessment & Plan (1) Neurogenic claudication due to lumbar spinal stenosis: Plan: L1-L2 decompression, T11-L2 fusion History of Present Illness Chief Complaint: Back and bilateral leg pain Primary Care Provider: NO PCP This is a 7-year-old male who presents with marked upon status with back and bilateral leg pain Plan course of nonoperative care is here for surgical intervention. Allergies Allergy/AdvReac Type Severity Reaction Status Date / Time No Known Allergies Allergy Verified 08/18/21 12:24 Home Medications Medication Instructions Recorded Confirmed Type ibuprofen 200 mg tablet (Advil) 200 mg PO Q6H PRN 07/31/21 08/18/21 History zinc 100 mg tablet 100 mg PO DAILY 07/31/21 08/18/21 History Past Med/Surg History Medical History (Updated 08/18/21 @ 13:21 by Anthony Zaman DO) Degenerative disc disease Sleep apnea CPAP-compliant Transient neurological symptoms H/o post-op lightheadedness and nystagmus 2018 following lumbar surgery. Per [facility] records, MRI recommended but refused by pt d/t claustrophobia, felt to be d/t acute blood loss anemia by neuro per plating engineer records (Hgb 8.7)--resolution and pt d/c home. Pt denies additional transient neurologic changes. Surgical History History of ankle surgery LEFT History of arthroscopy LEFT KNEE X2, RIGHT X1 History of colonoscopy History of tooth extraction Hx of spinal fusion X2 CERVICAL > ROM WNL / X2 LUMBAR Social History Smoking Status: Never smoker Second Hand Exposure: No; Do You Dip or Chew Tobacco: No (QUIT 11 YRS AGO); Tobacco Cessation Education Requested by Patient: No Hx Alcohol Use: Yes Alcohol type: beer and hard liquor Hx Substance Use: No Preferred Language: Tuvaluan Communication Ability: Effective Port Surveyor Required: No Beliefs That Will Affect Care: None Current Living Situation: Spouse Other Information That Helps Us Care for You: No Feels Safe at Home: Yes Safety Concerns: Feels Safe At This Time Assistive Devices: CPAP and Glasses Physical Exam Physical Exam: Patient is alert and oriented Heart regular in rhythm Lungs clear Results & Data ([facility]) Vital Signs (Past 12 Hours) Vital Signs Temp Pulse Resp BP Pulse Ox 08/18/21 12:35 36.5 C 72 20 166/99 H 97
[2021-08-18] MEDS ORDERED: BUPIVACAINE/EPINEPHRINE 0.25% 1:200,000 30 ML VIAL ONE (13:38)
[2021-08-18] MEDS ORDERED: ceFAZolin 330 MG/ML 1 GM VIAL ONE (13:38)
[2021-08-18] MEDS ORDERED: HYDROmorphone INJ 2 MG/ML SYR/VIAL ONE (14:13)
[2021-08-18] MEDS ORDERED: KETAMINE 50 MG/5 ML SYRINGE ONE (14:21)
[2021-08-18] MEDS ORDERED: FLOSEAL HEMOSTATIC MATRIX 10ML TOP ONE (14:34)
[2021-08-18] MEDS ORDERED: ALBUMIN HUMAN 5% 12.5 GM/250 ML VIAL IV ONE (15:11)
[2021-08-18] MEDS ORDERED: GLYCOPYRROLATE 0.2 MG/ML VIAL ONE (15:39)
[2021-08-18] MEDS ORDERED: NEOSTIGMINE METHYLSULFATE 1 MG/ML 10ML VIAL ONE (15:39)
[2021-08-18] MEDS ORDERED: DEXAMETHASONE SOD INJ 4 MG/ML VIAL ONE (15:47)
[2021-08-18] MEDS ORDERED: ONDANSETRON INJ 2 MG/ML 2 ML VIAL ONE (15:47)
--- NOTE | 2021-08-18 16:15 | Operative Report ---
Post Operative Report Pre & Post Diagnosis Operation Date: 08/18/21 12:05 Pre-Op Diagnosis: Spinal Stenosis, Lumbar Region with Neurogenic Claudication Post-Op Diagnosis: Spinal Stenosis, Lumbar Region with Neurogenic Claudication I identified the patient and participated in the time-out.: Yes Procedure Operation Date: 08/18/21 12:05 Actual Procedures #1 lumbar decompression with bilateral medial facetectomies and foraminotomies T12-L1 L1-L2. #2 posterior spinal fusion T11-L2. #3 placement posterior instrumentation T11-L2. #4 interbody fusion L1-L2. #5 placement of 12 x 26 mm titanium cage at L1-L2. #6 placement locally harvested morselized autograft in the posterior lateral gutters. #7 placement of infuse collagen sponge, master graft in the posterior gutters and I factor interbody space. Surgeon Anthony Zaman, DO [employer] Stephanie Alvarado Estimated Blood Loss 400 Findings See Below Patient is 5 foot 11 weight 119 kg with a BMI in excess of 36. Patient's body habitus did contribute to significant technical difficulty required deepest retractors longus instruments in order to perform his procedure. This had at least 50% increased operative time. Specimens None Indications This is a 7-year-old male who presents with above-mentioned diagnosis after failing course of nonoperative care is here for the above-mentioned procedure. Description of Procedure Patient was met with identified informed consent obtained. Patient was then taken to the operative suite underwent a patient placed in a prone position the Rock table atop Bird frame. All bony prominences well-padded eyes inspected to ensure no external pressure placed upon the. This point the thoracolumbar spine was prepped and draped in normal sterile fashion. Sharp dissection with the assistance of Bovie cardiac form down to and exposing the lamina and transverse processes of T11-T12 L1 and instrumentation at L2-L3 bilaterally. Then was able to remove bone around the proximal sheri and attached hematocrit connector to the proximal rods between L2 and L3. After this complete pedicle screws were placed in T12-L1 and L2 bilaterally with assistance of fluoroscopy. After this was complete I then performed a complete laminectomy of L1 pars laminectomy L2 including bilateral medial facetectomies and foraminotomies addressing severe spinal stenosis. By way of a transfemoral approach on the left complete discectomy of L1-L2 was performed endplates curetted to subcortical being bone and a 12 x 26 mm titanium cage filled I factor tapped in position. Proper size rods were then placed and connected to the screws locked into final position bilaterally. Incision was then copiously irrigated and the transverse processes of T11 T12-L1 and L2 burred to subcortically bone. Infuse collagen sponge mass graft local autograft placement posterior gutters. 15 round ORQUIDEA inserted. The incision was then closed with 1 Vicryl to fascia 2-0 Vicryl subcutaneously and 4 Monocryl for final skin closure. Steri-Strip sterile dressings placed. Patient will continue PACU stable condition. Please note spinal cord monitoring was utilized at the procedure no changes noted. Lastly Stephanie Alvarado was present at the entire surgery and while the patient positioning complex portions of the surgery and final skin closure. I attest to the content of the Intraoperative Record and any orders documented therein. Any exceptions are noted below.
--- NOTE | 2021-08-18 16:53 | Fluoroscopy Report ---
FL lumbar spine 2-3V CLINICAL HISTORY: T11-L2 D/F/I COMPARISON STUDY: Lumbar spine MRI 07/14/2021. FLUOROSCOPY TIME: 22 seconds. FINDINGS: Extensive posterior decompression and fusion within the lower thoracic and lumbar spine. Th e exact levels are difficult to identify on this spot image but appear to extend from T11 through L2. Additional fusion hardware seen at L3. The hardware appears intact. IMPRESSION: Posterior decompression fusion within the lower thoracic and lumbar spine as described ab ove. ACT 112: Negative or not required by law. Electronically signed by: Keven Hall M.D. 08/18/2021 4:52 PM
[2021-08-18] MEDS ORDERED: HYDROmorphone INJ 0.5 MG/0.5 ML SYR IV PRN (17:45)
[2021-08-18] MEDS ORDERED: traMADol HCL 50 MG TABLET PO PRN (17:45)
[2021-08-18] MEDS ORDERED: bisacodyL 10 MG SUPP PR PRN (17:45)
[2021-08-18] MEDS ORDERED: LORazepam 2 MG/1 ML VIAL IV PRN (17:45)
[2021-08-18] MEDS ORDERED: PROMETHAZINE HCL 12.5 MG in SODIUM CHLORIDE 0.9% 50 ML IV PRN (17:45)
[2021-08-18] MEDS ORDERED: diphenhydrAMINE Capsule 25 MG CAP PO PRN (17:45)
[2021-08-18] MEDS ORDERED: ACETAMINOPHEN 1,000 MG/100 ML VIAL IV PRN (17:45)
[2021-08-18] MEDS ORDERED: SOD PHOSPHATE/SOD BIPHOSPHATE ENEMA 132 ML BTL PR PRN (17:45)
[2021-08-18] MEDS ORDERED: METOCLOPRAMIDE HCL INJ 5 MG/ML 2 ML VIAL IV PRN (17:45)
[2021-08-18] MEDS ORDERED: DO NOT ADMINISTER PNEUMOCOCCAL VACCINE PRN (17:45)
[2021-08-18] MEDS ORDERED: ACETAMINOPHEN 500 MG TAB PO PRN (17:45)
[2021-08-18] MEDS ORDERED: ALUMINUM/MAGNESIUM SUSP 30 ML UDC PO PRN (17:45)
[2021-08-18] MEDS ORDERED: HYDROmorphone INJ 1 MG/ML SYRINGE IV PRN (17:45)
[2021-08-18] MEDS ORDERED: DO NOT ADMINISTER FLU VACCINE PRN (17:45)
[2021-08-18] MEDS ORDERED: hydrOXYzine HCl 25 MG TAB PO PRN (17:45)
[2021-08-18] MEDS ORDERED: ONDANSETRON 4 MG OD TAB PO PRN (17:45)
[2021-08-18] MEDS ORDERED: FAMOTIDINE 20 MG TAB PO PRN (17:45)
[2021-08-18] MEDS ORDERED: LORazepam 0.5 MG TAB PO PRN (17:45)
[2021-08-18] MEDS ORDERED: MAGNESIUM HYDROXIDE SUSP 30 ML UDC PO PRN (17:45)
[2021-08-18] MEDS ORDERED: NALOXONE HCL 0.4 MG/1 ML VIAL/CARP IV PRN (17:45)
--- NOTE | 2021-08-18 18:37 | Anesthesiology Progress Note ---
Date of Service August 18, 2021 Anesthesia Post Procedure Vital Signs Vital Signs: Temp Pulse Pulse Resp BP Pulse Ox 08/18/21 17:30 88 17 129/76 95 08/18/21 17:15 36.1 C L 84 16 142/79 H 98 08/18/21 17:05 87 16 143/81 H 96 08/18/21 16:55 92 H 16 137/79 98 08/18/21 16:45 89 13 139/77 99 08/18/21 16:38 36.0 C L 95 H 12 153/86 H 100 08/18/21 12:35 36.5 C 72 20 166/99 H 97 Pain Intensity Back: Pain Intensity: 3 Transfer of Care Handoff Completed per policy Notes Mental Status: alert / awake / arousable and participated in evaluation Patient Amnestic to Procedure: Yes Nausea / Vomiting: adequately controlled Pain: adequately controlled Airway Patency, RR, SpO2: stable & adequate BP & HR: stable & adequate Hydration State: stable & adequate Anesthetic Complications: no major complications apparent and Pt Satisfied with anesthetic care
--- NOTE | 2021-08-18 18:51 | Hospitalist Consultation ---
Date of Consultation August 18, 2021 Assessment & Plan (1) S/P spinal surgery: This is a 61yo M with a PMH of dyslipidemia, DOUG and other medical problems listed below who is POD #0 s/p lumbar decompression with bilateral medial facetectomies and foraminotomies T12-L1 L1-L2 and posterior spinal fusion T11-L2 by Dr. Zaman. Per ortho for pain control, wound care, anticoagulation and activities Monitor H&H (pre-op hgb 14.3, EBL 400ml) Continue incentive spirometry, PT/OT when appropriate (2) Dyslipidemia: Diet controlled (3) Sleep apnea: CPAP HS DVT Ppx: per primary service PCP: BUFFY Camara Patient seen in collaboration with Dr. Fletcher. Please see addendum. Supervising Physician Co-Signing Physician Notes I have seen and examined the patient and have discussed the case with the provider above. I agree with the assessment and plan as stated. 61 y/o M s/p back surgery today. Feeling as expected post-operatively. I re-emphasized the importance of CPAP therapy in this postop time. Pain controlled with current medical therapy. No numbness or tingling in lower extremities. Physical exam reveals a WNWD man in NAD, mentating clearly. Lungs CTAB, Cardiac exam reveals S1/2 without mgr and no peripheral edema. Extremities are warm and well perfused. Cont with plan as above. Thank you for this consultation. DO Chance History of Present Illness Reason for Consultation: post op med mgmt Attending Physician: Anthony Zaman DO History of Present Illness This is a 61yo M with a PMH of dyslipidemia, DOUG on CPAP and other medical problems listed below who is POD #0 s/p lumbar decompression with bilateral medial facetectomies and foraminotomies T12-L1 L1-L2 and posterior spinal fusion T11-L2 by Dr. Zaman. Patient is feeling well postoperatively with minimal surgical site discomfort. Denies any pain or paresthesias in bilateral lower extremities. Denies any fever, chills, chest pain, shortness of breath, nausea, vomiting, abdominal pain or dysuria. Had a bowel movement this morning prior to surgery. Does not take any home medications regularly other than zinc and calcium gummies. Of note, after spinal surgery in [place] in 2018, patient did have transient neurological changes including post-op lightheadedness and nystagmus. 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 Neuro symptoms resolved and patient denies any residual deficits. Receives primary care at [facility]. Allergies Allergy/AdvReac Type Severity Reaction Status Date / Time No Known Allergies Allergy Verified 08/18/21 12:24 Home Medications Medication Instructions Recorded Confirmed Type ibuprofen 200 mg tablet (Advil) 200 mg PO Q6H PRN 07/31/21 08/18/21 History zinc 100 mg tablet 100 mg PO DAILY 07/31/21 08/18/21 History oxycodone 5 mg tablet 5 mg PO Q6H PRN #30 tab 08/19/21 Rx tramadol 50 mg tablet 50 mg PO Q6H PRN #30 tab 08/19/21 Rx Patient History Medical History Degenerative disc disease Dyslipidemia Sleep apnea Transient neurological symptoms H/o post-op lightheadedness and nystagmus 2018 following lumbar surgery. 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 Pt denies additional transient neurologic changes. Surgical History History of ankle surgery LEFT History of arthroscopy LEFT KNEE X2, RIGHT X1 History of colonoscopy History of tooth extraction Hx of spinal fusion X2 CERVICAL > ROM WNL / X2 LUMBAR Family History Grandfather (Maternal) Heart disease Social History Smoking Status: Never smoker Second Hand Exposure: No; Do You Dip or Chew Tobacco: No (QUIT 11 YRS AGO); Tobacco Cessation Education Requested by Patient: No Hx Alcohol Use: Yes Alcohol type: beer and hard liquor Alcohol Intake Frequency: 4 or More x per/Week Alcohol Intake Frequency Comment: 2 beer / night. Denies history of withdrawal issues. Last drink 08/17 Hx Substance Use: No Preferred Language: Albanian Communication Ability: Effective Pilot Plant Supervisor Required: No Beliefs That Will Affect Care: None Current Living Situation: Spouse Other Information That Helps Us Care for You: No Feels Safe at Home: Yes Safety Concerns: Feels Safe At This Time Assistive Devices: Walker Review of Systems Review of Systems: At least ten systems reviewed and negative except as noted in the HPI. Physical Exam Physical Exam: General Appearance: WD/WN, vitals as above, NAD, sitting up in bed, pleasant, obese, conversing easily Head: normocephalic, atraumatic Eyes: normal inspection, PERRL, conjunctivae normal ENT: external ear and nose normal Neck: normal visual inspection, trachea midline Respiratory: normal respiratory effort, lungs clear to auscultation, no wheeze, rales, rhonchi. No accessory muscle use Cardiovascular: regular rate, rhythm, no murmur, normal peripheral pulses, no BLE edema Abdomen/GI: normal bowel sounds, soft, nontender, no hepatosplenomegaly : Pineda catheter Extremities/Musculoskeletal: Spinal dressing c/d/i. ORQUIDEA drain visualized. No cyanosis or clubbing, extremities motor strength 5/5 Neurologic: PERRL, no dysarthria, CN's II-XI intact bilaterally and moves all extremities Psychiatric: A+Ox3, euthymic affect Skin: no rashes, normal color, warm/dry Results & Data Results & Data ([facility]) Vital Signs (Past 12 Hours) Vital Signs Temp Pulse Pulse Resp BP Pulse Ox 08/18/21 18:15 79 16 136/77 96 08/18/21 17:45 36.4 C L 81 16 139/82 95 08/18/21 17:30 88 17 129/76 95 08/18/21 17:15 36.1 C L 84 16 142/79 H 98 08/18/21 17:05 87 16 143/81 H 96 08/18/21 16:55 92 H 16 137/79 98 08/18/21 16:45 89 13 139/77 99 08/18/21 16:38 36.0 C L 95 H 12 153/86 H 100 08/18/21 12:35 36.5 C 72 20 166/99 H 97 Diagnostic Findings Lumbar Spine X-Ray 08/18/21 12:05 FL lumbar spine 2-3V CLINICAL HISTORY: T11-L2 D/F/I COMPARISON STUDY: Lumbar spine MRI 07/14/2021. FLUOROSCOPY TIME: 22 seconds. FINDINGS: Extensive posterior decompression and fusion within the lower thoracic and lumbar spine. The exact levels are difficult to identify on this spot image but appear to extend from T11 through L2. Additional fusion hardware seen at L3. The hardware appears intact. IMPRESSION: Posterior decompression fusion within the lower thoracic and lumbar spine as described above. ACT 112: Negative or not required by law. Electronically signed by: Keven Hall M.D. 08/18/2021 4:52 PM
[2021-08-18] MEDS: KETOROLAC 30 MG/ML VIAL IV SCH ×2 (19:19→23:41)
[2021-08-18] MEDS: LACTATED RINGER'S 1,000 ML IV SCH ×2 (19:19→23:47)
[2021-08-18] MEDS: DOCUSATE SODIUM/SENNA 50/8.6MG TAB PO SCH (23:41)
[2021-08-18] MEDS: ceFAZolin 2000MG 2,000 MG/15 ML SYR IV SCH (23:41)
[2021-08-19] MEDS: KETOROLAC 30 MG/ML VIAL IV SCH ×2 (05:46→11:41)
[2021-08-19] MEDS: POLYETHYLENE (MIRALAX) 17 GM PACK PO SCH ×4 (05:46→20:58)
[2021-08-19] MEDS: ceFAZolin 2000MG 2,000 MG/15 ML SYR IV SCH (05:47)
[2021-08-19] MEDS: dexAMETHasone 6 MG in SYRINGE 0 ML IV SCH (08:02)
[2021-08-19 08:07] LABS: Hematocrit (blood only) 35.9 % (42-52); Immature Granulocytes # (auto) 0.02 K/uL (0.00-0.02); Immature Granulocytes % (auto) 0.2 %; Lymphocytes # (auto) 0.84 K/uL (1.2-3.4); Lymphocytes % (auto) 8.6 %; Mean Corpuscular Hemoglobin 30.5 pg (25-34); Mean Corpuscular Hgb Conc 33.4 g/dL (32-36); Mean Corpuscular Volume 91.3 fL (80-100); Mean Platelet Volume 9.6 fL (7.4-10.4); Monocytes # (auto) 0.89 K/uL (0.11-0.59); Monocytes % (auto) 9.1 %; Neutrophils # (auto) 8.07 K/uL (1.4-6.5); Neutrophils % (auto) 82.1 %; Platelet Count 176 K/uL (130-400); RDW Coefficient of Variation 13.1 % (11.5-14.5); RDW Standard Deviation 44.2 fL (36.4-46.3); Red Blood Count 3.93 M/uL (4.7-6.1); White Blood Count 9.82 K/uL (4.8-10.8)
[2021-08-19 08:38] LABS: BUN Creatinine Ratio 16.8 (10-20); Creatinine Clr Calc Pharmacy 108.8 ml/min; Est GFR (African American) 100.4 ml/min; Est GFR (Non-African American) 86.7 ml/min; Potassium 4.5 mmol/L (3.5-5.1)
--- NOTE | 2021-08-19 11:53 | Orthopedic Progress Note ---
Date of Service August 19, 2021 Assessment & Plan (1) Neurogenic claudication due to lumbar spinal stenosis: Plan: This time initiate physical therapy monitor his ORQUIDEA operatively discharge home in the next few days Admission and Anticipated Discharge Date Admission Date: August 18, 2021 Subjective Pain controlled left leg pain markedly improved Physical Exam Physical Exam: Patient appears comfortable skin strength testing. Results & Data ([facility]) Vital Signs (Past 12 Hours) Vital Signs Temp Pulse Resp BP Pulse Ox 08/19/21 08:03 36.4 C L 59 L 16 127/76 99 08/19/21 03:13 36.5 C 66 16 123/72 96
[2021-08-19] MEDS: oxyCODONE HCL IR 5 MG TAB (IMMEDIATE RELEASE) PO PRN (17:07)
--- NOTE | 2021-08-19 17:53 | Hospitalist Progress Note ---
Date of Service August 19, 2021 Assessment & Plan (1) S/P spinal surgery: Plan: This is a 61yo M with a PMH of dyslipidemia, DOUG and other medical problems listed below who is POD #1 s/p lumbar decompression with bilateral medial facetectomies and foraminotomies T12-L1 L1-L2 and posterior spinal fusion T11-L2 by Dr. Zaman. Per ortho for pain control, wound care, anticoagulation and activities Monitor H&H (pre-op hgb 14.3, EBL 400ml) Continue incentive spirometry, PT/OT when appropriate (2) Dyslipidemia: Plan: Diet controlled (3) Sleep apnea: Plan: CPAP HS DVT Ppx: per primary service PCP: BUFFY Camara Dispo-to home in 1-2 days per Ortho. Thank you for this consultation. Cristina Fletcher DO [facility] Ad[facility] and Anticipated Discharge Date Admission Date: August 18, 2021 Subjective 61 yo M s/p lumbar surgery, POD #1 pain controlled, ambulating, left leg pain controlled/improved slight numbness in medial left foot. Review of Systems Review of Systems: All systems reviewed negative except as indicated above. Physical Exam Physical Exam: CONSTITUTIONAL: WNWD, vitals as above, generally well- appearing, NAD EYES: normal conjunctivae, no scleral icterus, ENT: external ear and nose normal, MMM NECK: trachea midline, RESPIRATORY: clear to auscultation bilaterally, no crackles, rales or wheezes, normal respiratory effort CARDIOVASCULAR: regular rate and rhythm, S1 and 2 heard without murmurs, gallops or rubs, no JVD, no peripheral edema CHEST: inspection of chest was normal GASTROINTESTINAL: soft, nontender, ND, no guarding MUSCULOSKELETAL: strength 5/5 throughout, head is normocephalic and atraumatic SKIN: warm and dry, NEUROLOGIC: CN 2-12 grossly intact, normal cognition, normal speech, no tremor PSYCHIATRIC: alert cooperative and oriented to person, place and time. Results & Data Results & Data ([facility]) Vital Signs (Past 12 Hours) Vital Signs Temp Pulse Resp BP Pulse Ox 08/19/21 15:26 36.6 C 71 16 139/73 97 08/19/21 08:03 36.4 C L 59 L 16 127/76 99 Laboratory Results Short CBC 08/19/21 Range/Units 07:45 WBC 9.82 (4.8-10.8) K/uL Hgb 12.0 L (14.0-18.0) g/dL Hct 35.9 L (42-52) % Plt Count 176 (130-400) K/uL [facility] 08/19/21 07:45 Sodium 137 Potassium 4.5 Chloride 104 Carbon Dioxide 28 BUN 16 Creatinine 0.95 Glucose 121 H Calcium 8.0 L Medications Administered Current Inpatient Medications Acetaminophen (Acetaminophen 500 Mg Tab) 1,000 mg PO Q8H PRN PRN Reason: MILD Pain Scale 1,2,3 & Pre PT Stop: 09/17/21 17:44 Al Hydrox/Mg Hydrox/Simethicone (Aluminum/Magnesium Susp 30 Ml Udc) 30 ml PO Q6H PRN PRN Reason: Dyspepsia Stop: 09/17/21 17:44 Bisacodyl (Bisacodyl 10 Mg Supp) 10 mg IN DAILY PRN PRN Reason: Constipation Stop: 09/17/21 17:44 Diphenhydramine HCl (Diphenhydramine Capsule 25 Mg Cap) 25 mg PO Q6H PRN PRN Reason: Allergic Rhinitis/Insomnia Stop: 09/17/21 17:44 Famotidine (Famotidine 20 Mg Tab) 20 mg PO Q12H PRN PRN Reason: Dyspepsia Stop: 09/17/21 17:44 Hydromorphone HCl (Hydromorphone Inj 0.5 Mg/0.5 Ml Syr) 0.5 mg IV Q3H PRN PRN Reason: MODERATE Pain (Scale 4,5,6) & Pre PT Stop: 09/01/21 17:44 Hydromorphone HCl (Hydromorphone Inj 1 Mg/Ml Syringe) 1 mg IV Q3H PRN PRN Reason: SEVERE Pain (Scale 7,8,9,10) Stop: 09/01/21 17:44 Hydroxyzine HCl (Hydroxyzine Hcl 25 Mg Tab) 25 mg PO Q8H PRN PRN Reason: Anxiety Stop: 09/17/21 17:44 Acetaminophen (Ofirmev) 1,000 mg in 100 mls @ 400 mls/hr IV Q8H PRN PRN Reason: Pain Rating 1-3 & Pre PT Stop: 08/21/21 17:44 Dexamethasone 6 mg/ Syringe 1.5 mls @ 1 mls/min IV DAILY JESS Stop: 08/21/21 09:02 Last Admin: 08/19/21 08:02 Dose: 1 mls/min Documented by: Promethazine HCl 12.5 mg/ (Sodium Chloride) 50.5 mls @ 202 mls/hr IV Q6H PRN PRN Reason: Nausea &/or Vomiting Stop: 09/17/21 17:44 Influenza Virus Vaccine Quadrival (Do Not Administer Flu Vaccine) 1 ea N/A PRN PRN PRN Reason: Notification Stop: 09/17/21 17:44 Lorazepam (Lorazepam 0.5 Mg Tab) 0.5 mg PO Q8H PRN PRN Reason: Sedation/Anxiety Stop: 09/17/21 17:44 Lorazepam (Lorazepam 2 Mg/1 Ml Vial) 0.5 mg IV Q8H PRN PRN Reason: Sedation/Anxiety Stop: 09/17/21 17:44 Magnesium Hydroxide (Magnesium Hydroxide Susp 30 Ml Udc) 30 ml PO Q24H PRN PRN Reason: Constipation Stop: 09/17/21 17:44 Metoclopramide HCl (Metoclopramide Hcl Inj 5 Mg/Ml 2 Ml Vial) 10 mg IV Q6H PRN PRN Reason: Nausea &/or Vomiting Stop: 09/17/21 17:44 Naloxone HCl (Naloxone Hcl 0.4 Mg/1 Ml Vial/Carp) 0.1 mg IV Q5M PRN PRN Reason: Oversedation/Resp depression Stop: 09/17/21 17:44 Ondansetron HCl (Ondansetron Inj 2 Mg/Ml 2 Ml Vial) 4 mg IV Q6H PRN PRN Reason: Nausea &/or Vomiting Stop: 09/17/21 17:44 Ondansetron HCl (Ondansetron 4 Mg Od Tab) 4 mg PO Q6H PRN PRN Reason: Nausea Stop: 09/17/21 17:44 Oxycodone HCl (Oxycodone Hcl Ir 5 Mg Tab (Immediate Release)) 5 - 10 mg PO Q4H PRN PRN Reason: Pain & Pre PT Stop: 09/01/21 17:44 Last Admin: 08/19/21 17:07 Dose: 10 mg Documented by: Pneumococcal Polyvalent Vaccine (Do Not Administer Pneumococcal Vaccine) 1 ea N/A PRN PRN PRN Reason: Notification Stop: 09/17/21 17:44 Polyethylene Glycol (Polyethylene (Miralax) 17 Gm Pack) 17 gm PO Q6 JESS Stop: 09/18/21 05:59 Last Admin: 08/19/21 17:07 Dose: 17 gm Documented by: Senna/Docusate Sodium (Docusate Sodium/Senna 50/8.6mg Tab) 2 tab PO HS JESS Stop: 09/17/21 20:59 Last Admin: 08/18/21 23:41 Dose: Not Given Documented by: Sodium Biphosphate/Sodium Phosphate (Sod Phosphate/Sod Biphosphate Enema 132 Ml Btl) 132 ml IN ONE PRN PRN Reason: Constipation Stop: 09/17/21 17:44 Tramadol HCl (Tramadol Hcl 50 Mg Tablet) 50 - 100 mg PO Q4H PRN PRN Reason: Moderate-Severe pain & Pre PT Stop: 09/17/21 17:44
[2021-08-19] MEDS: DOCUSATE SODIUM/SENNA 50/8.6MG TAB PO SCH (20:56)
[2021-08-20] MEDS: POLYETHYLENE (MIRALAX) 17 GM PACK PO SCH ×4 (04:58→20:13)
[2021-08-20] MEDS: dexAMETHasone 6 MG in SYRINGE 0 ML IV SCH (07:50)
[2021-08-20] MEDS: oxyCODONE HCL IR 5 MG TAB (IMMEDIATE RELEASE) PO PRN ×2 (10:43→20:10)
--- NOTE | 2021-08-20 14:06 | Orthopedic Progress Note ---
Date of Service August 20, 2021 Assessment & Plan (1) Neurogenic claudication due to lumbar spinal stenosis: Plan: At this time we will continue physical therapy monitor his ORQUIDEA output anticipate discharge home tomorrow. Admission and Anticipated Discharge Date Admission Date: August 18, 2021 Subjective Back pain controlled leg pain improved Physical Exam Physical Exam: Patient is in the chair at the bedside. Appears comfortable. Results & Data ([facility]) Vital Signs (Past 12 Hours) Vital Signs Temp Pulse Resp BP Pulse Ox 08/20/21 07:19 36.7 C 55 L 16 119/77 100
--- NOTE | 2021-08-20 15:58 | Hospitalist Progress Note ---
Date of Service August 20, 2021 Assessment & Plan (1) S/P spinal surgery: Plan: This is a 61yo M with a PMH of dyslipidemia, DOUG and other medical problems listed below who is POD #2 s/p lumbar decompression with bilateral medial facetectomies and foraminotomies T12-L1 L1-L2 and posterior spinal fusion T11-L2 by Dr. Zaman. Per ortho for pain control, wound care, anticoagulation and activities Monitor H&H (pre-op hgb 14.3, EBL 400ml) Continue incentive spirometry, PT/OT per ortho (2) Dyslipidemia: Plan: Diet controlled (3) Sleep apnea: Plan: CPAP HS DVT Ppx: per primary service PCP: BUFFY Camara Dispo-to home in am per Ortho. Thank you for this consultation. Cristina Fletcher DO [facility]ist Admission and Anticipated Discharge Date Admission Date: August 18, 2021 Subjective 61 yo M s/p lumbar surgery, POD #2 pain controlled, ambulating, left leg pain resolved no numbness today ambulating with walker Review of Systems Review of Systems: All systems reviewed negative except as indicated above. Physical Exam Physical Exam: CONSTITUTIONAL: WNWD, vitals as above, generally well- appearing, NAD EYES: normal conjunctivae, no scleral icterus, ENT: external ear and nose normal, MMM NECK: trachea midline, RESPIRATORY: clear to auscultation bilaterally, no crackles, rales or wheezes, normal respiratory effort CARDIOVASCULAR: regular rate and rhythm, S1 and 2 heard without murmurs, g allops or rubs, no JVD, no peripheral edema CHEST: inspection of chest was normal GASTROINTESTINAL: soft, nontender, ND, no guarding MUSCULOSKELETAL: strength 5/5 throughout, head is normocephalic and atraumatic ambulatory. +ORQUIDEA drain in back, incision covered with c/d/i dressing. SKIN: warm and dry, NEUROLOGIC: CN 2-12 grossly intact, normal cognition, normal speech, no tremor PSYCHIATRIC: alert cooperative and oriented to person, place and time. Results & Data Results & Data ([facility]) Vital Signs (Past 12 Hours) Vital Signs Temp Pulse Resp BP Pulse Ox 08/20/21 15:17 36.6 C 62 16 120/72 99 08/20/21 07:19 36.7 C 55 L 16 119/77 100 Medications Administered Current Inpatient Medications Acetaminophen (Acetaminophen 500 Mg Tab) 1,000 mg PO Q8H PRN PRN Reason: MILD Pain Scale 1,2,3 & Pre PT Stop: 09/17/21 17:44 Al Hydrox/Mg Hydrox/Simethicone (Aluminum/Magnesium Susp 30 Ml Udc) 30 ml PO Q6H PRN PRN Reason: Dyspepsia Stop: 09/17/21 17:44 Bisacodyl (Bisacodyl 10 Mg Supp) 10 mg OR DAILY PRN PRN Reason: Constipation Stop: 09/17/21 17:44 Diphenhydramine HCl (Diphenhydramine Capsule 25 Mg Cap) 25 mg PO Q6H PRN PRN Reason: Allergic Rhinitis/Insomnia Stop: 09/17/21 17:44 Famotidine (Famotidine 20 Mg Tab) 20 mg PO Q12H PRN PRN Reason: Dyspepsia Stop: 09/17/21 17:44 Hydromorphone HCl (Hydromorphone Inj 0.5 Mg/0.5 Ml Syr) 0.5 mg IV Q3H PRN PRN Reason: MODERATE Pain (Scale 4,5,6) & Pre PT Stop: 09/01/21 17:44 Hydromorphone HCl (Hydromorphone Inj 1 Mg/Ml Syringe) 1 mg IV Q3H PRN PRN Reason: SEVERE Pain (Scale 7,8,9,10) Stop: 09/01/21 17:44 Hydroxyzine HCl (Hydroxyzine Hcl 25 Mg Tab) 25 mg PO Q8H PRN PRN Reason: Anxiety Stop: 09/17/21 17:44 Acetaminophen (Ofirmev) 1,000 mg in 100 mls @ 400 mls/hr IV Q8H PRN PRN Reason: Pain Rating 1-3 & Pre PT Stop: 08/21/21 17:44 Dexamethasone 6 mg/ Syringe 1.5 mls @ 1 mls/min IV DAILY JESS Stop: 08/21/21 09:02 Last Admin: 08/20/21 07:50 Dose: 1 mls/min Documented by: Promethazine HCl 12.5 mg/ (Sodium Chloride) 50.5 mls @ 202 mls/hr IV Q6H PRN PRN Reason: Nausea &/or Vomiting Stop: 09/17/21 17:44 Influenza Virus Vaccine Quadrival (Do Not Administer Flu Vaccine) 1 ea N/A PRN PRN PRN Reason: Notification Stop: 09/17/21 17:44 Lorazepam (Lorazepam 0.5 Mg Tab) 0.5 mg PO Q8H PRN PRN Reason: Sedation/Anxiety Stop: 09/17/21 17:44 Lorazepam (Lorazepam 2 Mg/1 Ml Vial) 0.5 mg IV Q8H PRN PRN Reason: Sedation/Anxiety Stop: 09/17/21 17:44 Magnesium Hydroxide (Magnesium Hydroxide Susp 30 Ml Udc) 30 ml PO Q24H PRN PRN Reason: Constipation Stop: 09/17/21 17:44 Metoclopramide HCl (Metoclopramide Hcl Inj 5 Mg/Ml 2 Ml Vial) 10 mg IV Q6H PRN PRN Reason: Nausea &/or Vomiting Stop: 09/17/21 17:44 Naloxone HCl (Naloxone Hcl 0.4 Mg/1 Ml Vial/Carp) 0.1 mg IV Q5M PRN PRN Reason: Oversedation/Resp depression Stop: 09/17/21 17:44 Ondansetron HCl (Ondansetron Inj 2 Mg/Ml 2 Ml Vial) 4 mg IV Q6H PRN PRN Reason: Nausea &/or Vomiting Stop: 09/17/21 17:44 Ondansetron HCl (Ondansetron 4 Mg Od Tab) 4 mg PO Q6H PRN PRN Reason: Nausea Stop: 09/17/21 17:44 Oxycodone HCl (Oxycodone Hcl Ir 5 Mg Tab (Immediate Release)) 5 - 10 mg PO Q4H PRN PRN Reason: Pain & Pre PT Stop: 09/01/21 17:44 Last Admin: 08/20/21 10:43 Dose: 10 mg Documented by: Pneumococcal Polyvalent Vaccine (Do Not Administer Pneumococcal Vaccine) 1 ea N/A PRN PRN PRN Reason: Notification Stop: 09/17/21 17:44 Polyethylene Glycol (Polyethylene (Miralax) 17 Gm Pack) 17 gm PO Q6 JESS Stop: 09/18/21 05:59 Last Admin: 08/20/21 12:21 Dose: 17 gm Documented by: Senna/Docusate Sodium (Docusate Sodium/Senna 50/8.6mg Tab) 2 tab PO HS JESS Stop: 09/17/21 20:59 Last Admin: 08/19/21 20:56 Dose: 2 tab Documented by: Sodium Biphosphate/Sodium Phosphate (Sod Phosphate/Sod Biphosphate Enema 132 Ml Btl) 132 ml OR ONE PRN PRN Reason: Constipation Stop: 09/17/21 17:44 Tramadol HCl (Tramadol Hcl 50 Mg Tablet) 50 - 100 mg PO Q4H PRN PRN Reason: Moderate-Severe pain & Pre PT Stop: 09/17/21 17:44
[2021-08-20] MEDS: DOCUSATE SODIUM/SENNA 50/8.6MG TAB PO SCH (20:13)
[2021-08-21] MEDS: POLYETHYLENE (MIRALAX) 17 GM PACK PO SCH (05:13)
[2021-08-21] MEDS: oxyCODONE HCL IR 5 MG TAB (IMMEDIATE RELEASE) PO PRN (05:15)
--- NOTE | 2021-08-21 08:43 | Discharge Summary ---
Date of Service August 21, 2021 Admission HPI Per Admitting Provider This is a 61-year-old male who presents with marked upon status with back and bilateral leg pain Plan course of nonoperative care is here for surgical intervention. Admission Exam (Per Admitting) Constitutional well developed Eyes normal visual blanco by confrontation Neck normal visual inspection Respiratory normal respiratory effort Cardiovascular Extremities: normal capillary refill Gastrointestinal (Abdomen) Inspection/Auscultation: abdomen normal to inspection Musculoskeletal Spine: + pain with thoraco-lumbar ROM Extremities: extremities normal to inspection Skin no rashes, warm and dry Neurologic normal touch/pain/proprioception and moves all extremities Psychiatric A+Ox3, euthymic affect Discharge Data Consultations 08/18/21 17:45 Consult Hospitalist Routine Procedures Performed Operation Date: 08/18/21 12:05 Actual Procedures p L1-L2 Decompression, T11-L2 Fusion, Spinal Cord Monitoring(Not Applicable) - Anthony Zaman DO Hospital Course (1) S/P spinal surgery: Located postoperative hospital course status post T12-L2 decompression and instrumented fusion. ORQUIDEA drain output last shift was 30 cc. He is ambulating roughly 1000 feet in physical therapy. Denies radicular leg pain or paresthesia. Back pain is controlled. Lab values have been stable throughout his hospital course. He is being discharged home on postoperative day 3 Discharge Instructions ACTIVITY RECOMMENDATIONS: SELF CARE INSTRUCTIONS AFTER THORACIC/LUMBAR FUSIONS 1. You may walk to your tolerance. It is good exercise for your legs and back. Expect some back and intermittent leg aches and pains. 2. You may perform "counter-top" level activities (make a sandwich, diego with a project, etc.). 3. No bending or lifting of more than 10 pounds or back twisting of any nature (roll like a log when turning in bed). 4. You may ride in a car for 20-30 minutes at a time. No driving until after your first visit with your doctor. 5. Frequent changes of position and restricting sitting to 30 minutes at a time will help limit the amount of back spasms and stiffness you may experience. 6. You may discontinue the use of ambulatory aids (cane, crutches, etc.) once your strength and confidence allow. 7. You may coating engineer the shower and let water strike your incision when you arrive home at least once daily. Do not take a tub bath, sit in a hot tub or go into a swimming pool until after your first recheck in the office. SPECIAL CARE INSTRUCTIONS: VERY IMPORTANT TO READ AND REVIEW A. Your surgical incision has been closed with a cosmetic suture under the skin that will dissolve in about 6 weeks. In 14 days, you can use a pair of clean scissors and cut the suture that is left outside of the skin at the ends of your incision. 1. The small skin tapes can be removed 7 days after surgery if they have not fallen off by that point. 2. You may keep the wound open to air as much as possible to promote healing after post-op day number 5 unless told otherwise by your doctor. 3. If you think the wound looks like it is becoming infected (redness or worsening drainage) and/or you are experiencing fever, chill or worsening back pain and muscle spasms, contact the office so that we may evaluate you as soon as possible. B. Complications are uncommon, but please contact us if you have any signs or symptoms of: 1. wound infection (fever higher than 102.5 degrees F, redness, separation of wound, drainage, or increasing pain from the incision) 2. blood clots in legs (pain, swelling, redness and warmth in legs) 3. urinary tract infection (fever higher than 102.5 degrees F, burning upon urination or increased frequency of urination) 4. nerve problems (inability to walk on your toes or heels, numbness, loss of bowel or bladder control) 5. any other symptoms that concern you C. Please call the office at if you have any concerns or questions about your operation or recovery. D. No smoking! Smoking drastically decreases the chance of a solid fusion. E. Do not take any anti-inflammatory medications (Indocin, Advil, Motrin, Aspirin, Naprosyn, etc.) as these may inhibit the chance of a solid fusion. Tylenol is okay to take for pain. MANAGING PAIN AFTER SPINAL SURGERY 1. Narcotic medication is intended for short-term use and will be provided for surgical pain. Surgical pain usually lasts for a period of 4-6 weeks. Narcotic medication includes Percocet, Vicodin, Darvocet, Tylenol #3 or Lortab. 2. Longer-term pain is more appropriately treated with non-narcotic medication such as Tylenol ES. 3. Muscle spasm is not appropriately treated with narcotics. Muscle relaxers such as Soma, Flexeril or Skelaxin can be used along with Tylenol ES. 4. Remember that we all live with some "aches and pains". This is not unusual or uncommon after an injury or as we get older. a. Back pain is expected and may include muscle spasms for 4 to 6 weeks after surgery. The pain should gradually improve. If the pain worsens for no apparent reason, please contact the office. b. Intermittent leg pain may also be experienced and should not be concerned about unless it worsens for no apparent reason. If so, please contact the office. 5. We will provide appropriate medication within the normal guidelines of their prescribed use. We will also be very cautious and aware of potential abuse and extended duration of patients' medication needs. a. Pain medications are for your comfort and to assist with sleep and rest so that the tissue can heal. They are not provided in order to return to normal activity and should not be used through the day. To do so or worsening pain at night can result from ongoing tissue damage and developm ent of tolerance to the prescribed medicine. 6. Please allow 2-3 days to process refills. Prescriptions will not be mailed but must be picked up at the office. FOLLOW UP VISIT: Keep your scheduled follow-up appointment. Any questions, please call the office at .
[2021-08-21] MEDS: dexAMETHasone 6 MG in SYRINGE 0 ML IV SCH (10:01)
== END 2021-08-21 11:20 | disposition home or self-care (01) | DRG 455 ==
LOC: ASU 12:09 → 3E 16:18